=== PATIENT | female | born 1980 | race Caucasian/White ===

== ENCOUNTER 2022-08-28 09:03 | Emergency (ER) | payer MEDICAID ==
[2022-08-28 09:38] VITALS: BP 123/90
[2022-08-28] MEDS ORDERED: LIDOCAINE-EPINEPH-TETRACAINE 3 ML SYRINGE TOP STA (11:16)
--- NOTE | 2022-08-28 12:18 | ED Physician Documentation ---
PD HPI HEAD INJURY - Stated complaint Stated Complaint: LAC ON CHEEK - Chief complaint Chief Complaint: Laceration - History obtained from History obtained from: Patient - Additional information Additional information: Patient is a 41-year-old female presenting for a laceration to her right cheek that occurred just this morning when her cat jumped on top of her and accidentally scratched her with a back cough. Cats immunizations are up-to-date. Her last tetanus was in 2019. She does not take a blood thinner. Review of Systems Constitutional: denies: Fever Cardiac: denies: Chest pain / pressure Respiratory: denies: Dyspnea Skin: reports: Laceration (s) PD PAST MEDICAL HISTORY - Present Medications Home Medications: Ambulatory Orders Medication Instructions Recorded Confirmed Gabapentin [Neurontin] 600 mg PO DAILY 08/28/22 08/28/22 Tizanidine HCl 2 mg PO DAILY 08/28/22 08/28/22 - Allergies Allergies/Adverse Reactions: Allergies Allergy/AdvReac Type Severity Reaction Status Date / Time No Known Drug Allergies Allergy Verified 08/28/22 09:33 PD ED PE NORMAL - General General: Alert and oriented X 3, No acute distress, Well developed/nourished - HEENT HEENT: PERRL, EOMI, Moist mucous membranes, Pharynx benign, Other (2 cm laceration to right cheek, superficial scratches to nose) - Neck Neck: Supple, no meningeal sign - Respiratory Respiratory: No respiratory distress - Derm Derm: Warm and dry - Neuro Neuro: Normal speech PD ED PE EXPANDED - HEENT HEENT Visual: 1 - laceration Results - Vitals Vitals: Vital Signs - 24 hr 08/28/22 09:29 Temperature 36.4 C L Heart Rate 72 Respiratory 20 Rate Blood Pressure 123/90 H O2 Saturation 98 Procedures - Laceration (location) Right cheek Length in cm: 2 Wound type: Linear, Clean Neurovascular status: Sensory intact, Motor intact, Vascular intact Anesthesia: LET Wound preparation: Hibiclens, Irrigated copiously NS Skin layer closure: Size #-0 - enter number (5), Sutures - enter # (5) Other: Patient tolerated well, No complications, Neurovascular intact, Tetanus UTD PD Medical Decision Making - ED course ED course: Patient with cat scratch to face including 2 cm laceration below right eye. No ocular involvement. EOMI. Superficial scratches to the nose. Her tetanus is up-to-date. Discussed options for wound closure and patient is opted for suture repair which she tolerated well. As either scratches and bites I do not think she needs prophylactic antibiotics. Patient is counseled on need for suture removal as well as wound care instructions. She is counseled on concerning symptoms to return for. Departure - Departure Disposition: 01 Home, Self Care Clinical Impression: Cat scratch, Laceration of right cheek Condition: Stable Instructions: ED Laceration Facial Sutr Tape Comments: You have a laceration to your right cheek that was closed with 5 stitches. These should be left in for 3 to 5 days. You can return to the emergency department Or the walk-in clinic 09/02/22 for suture removal. Your last Tetanus was in 2019. We do not typically prescribe antibiotics prophylactically for cat scratches. However you need to make sure to keep a close eye on these wounds. Return to the emergency department with any worsening symptoms such as fever, redness, swelling or increased pain. Discharge Date/Time: 08/28/22 12:27
== END 2022-08-28 12:27 | disposition home or self-care (01) ==
LOC: ED 09:03
DX: S01.411A Laceration without foreign body of right cheek and temporomandibular area, initial encounter (principal); W55.03XA Scratched by cat, initial encounter
CPT/HCPCS: 12011; 99282

== ENCOUNTER 2022-09-05 09:41 | Emergency (ER) | payer MEDICAID ==
[2022-09-05 09:50] VITALS: BP 127/77
--- NOTE | 2022-09-05 10:06 | ED Physician Documentation ---
PD HPI WOUND RECHECK - Stated complaint Stated Complaint: STITCH REMOVAL - Chief complaint Chief Complaint: Laceration - Histroy obtained from History obtained from: Patient, Family - History of Present Illness Location: Face Timing - onset: How many days ago (7) Associated symptoms: No: Fever, Redness, Swelling, Drainage, Pain Similar symptoms before: Diagnosis (laceration) Recently seen: Emergency Dept - Additional information Additional information: Milady Astudillo is a 41-year-old female who had a cat jump on her face and she has a laceration below her right eye that was sutured 1 week ago. She is here now for suture removal. No complaints no problems with the wound. Review of Systems Constitutional: denies: Fever Eyes: denies: Decreased vision Ears: denies: Ear pain Respiratory: denies: Cough GI: denies: Vomiting PD PAST MEDICAL HISTORY - Present Medications Home Medications: Ambulatory Orders Medication Instructions Recorded Confirmed Gabapentin [Neurontin] 600 mg PO DAILY 08/28/22 09/05/22 Tizanidine HCl 2 mg PO DAILY 08/28/22 09/05/22 - Allergies Allergies/Adverse Reactions: Allergies Allergy/AdvReac Type Severity Reaction Status Date / Time No Known Drug Allergies Allergy Verified 09/05/22 09:47 PD ED PE NORMAL - Vitals Vital signs reviewed: Yes (normal ) - General General: Alert and oriented X 3, No acute distress, Well developed/nourished - HEENT HEENT: PERRL, EOMI, Other (3cm laceration below the right eye on the cheek is healing well without signs of inflamation ) - Respiratory Respiratory: No respiratory distress - Derm Derm: Normal color, Warm and dry - Extremities Extremities: No deformity, No edema - Neuro Neuro: Alert and oriented X 3, manager summer 2-12 intact, No motor deficit, No sensory deficit, Normal speech Eye Opening: Spontaneous Motor: Obeys Commands Verbal: Oriented GCS Score: 15 - Psych Psych: Normal mood, Normal affect Results - Vitals Vitals: Vital Signs - 24 hr 09/05/22 09:48 Temperature 36 C L Heart Rate 92 Respiratory 16 Rate Blood Pressure 127/77 O2 Saturation 99 Oxygen O2 Source Room air Procedures - Suture/staple Removal (location) - Minor face Suture/staple removal: # sutures (5), No complications PD Medical Decision Making - ED course Complexity details: considered differential, d/w patient ED course: 41-year-old female presents for suture removal wound is healing well sutures are removed. Departure - Departure Disposition: 01 Home, Self Care Clinical Impression: Encounter for removal of sutures Condition: Stable Follow-Up: [facility] [Provider Group]
== END 2022-09-05 10:00 | disposition home or self-care (01) ==
LOC: ED 09:41
DX: Z48.02 Encounter for removal of sutures (principal); S01.411D Laceration without foreign body of right cheek and temporomandibular area, subsequent encounter; W55.03XD Scratched by cat, subsequent encounter
CPT/HCPCS: 99281; 99282

== ENCOUNTER 2023-08-13 13:47 | Emergency (ER) | payer MEDICAID ==
--- NOTE | 2023-08-13 14:56 | XRAY Report ---
PROCEDURE: Hand 3+V LT INDICATIONS: Trauma TECHNIQUE: 3 views of the hand(s) acquired. COMPARISON: None. FINDINGS: Bones: No fractures or dislocations. No suspicious bony lesions. Soft tissues: No suspicious soft tissue calcifications or masses. IMPRESSION: No acute bony abnormality. Reviewed by: John Monzon MD on 08/13/2023 2:55 PM PDT Approved by: John Monzon MD on 08/13/2023 2:55 PM PDT Station ID: [id number]
--- NOTE | 2023-08-13 15:44 | ED Physician Documentation ---
History of Present Illness - Stated complaint Stated Complaint: L HAND PX - Chief complaint Chief Complaint: Trauma Ext - History obtained from History obtained from: Patient - History of Present Illness Timing: Today Pain level max: 3 Pain level now: 3 - Additonal information Additional information: 42-year-old female presents to the emergency department complaining of a small lump Just below her left ring finger. Present for the past few days. She states is causing pain today. No redness. She has had a ganglion cyst in the wrist before. No injury. PD PAST MEDICAL HISTORY - Past Medical History Past Medical History: No Other Past Medical History: smokes marijuana - Past Surgical History Past Surgical History: Yes Ortho: Other - Present Medications Home Medications: Ambulatory Orders Medication Instructions Recorded Confirmed Gabapentin [Neurontin] 600 mg PO DAILY 08/28/22 09/05/22 Tizanidine HCl 2 mg PO DAILY 08/28/22 09/05/22 - Allergies Allergies/Adverse Reactions: Allergies Allergy/AdvReac Type Severity Reaction Status Date / Time No Known Drug Allergies Allergy Verified 08/13/23 14:25 - Social History Does the pt smoke?: No Smoking Status: Never smoker Does the pt drink ETOH?: Yes Does the pt have substance abuse?: No PD ED PE NORMAL - General General: Alert and oriented X 3 - Derm Derm: Warm and dry - Extremities Extremities: Other (Small palpable cyst versus calcification in the tendon palmar aspect of the proximal phalanx of the left ring finger.) Results - Vitals Vitals: Vital Signs - 24 hr 08/13/23 08/13/23 14:19 16:11 Temperature 36.4 C L 36.7 C Heart Rate 79 89 Respiratory 18 20 Rate Blood Pressure 120/81 H 112/78 O2 Saturation 98 99 Oxygen O2 Source Room air - Rads (name of study) L hand xray Relevant Findings:: Final report received, See rad report PD Medical Decision Making - ED course Complexity details: reviewed results, considered differential, d/w patient ED course: Patient with what appears to be a small ganglion cyst versus a small calcific tendon to the left ring finger, proximal phalanx, palmar aspect. No redness. No swelling. No drainage. Full range of motion of the finger. Neurovascular intact. Will continue supportive care and recommend she follow-up with a hand surgeon for further care. Patient counseled regarding signs and symptoms for which I believe and urgent re-evaluation would be necessary. Patient with good understanding of and agreement to plan and is comfortable going home at this time This document was made in part using voice recognition software. While efforts are made to proofread this document, sound alike and grammatical errors may occur. Departure - Departure Disposition: 01 Home, Self Care Clinical Impression: Ganglion cyst of flexor tendon sheath of finger of left hand Condition: Good Instructions: ED Cyst Ganglion Follow-Up: [facility] [Provider Group] [facility] [Provider Group] Comments: As we discussed you have either a small cyst or calcification in the the tendon of your finger. You can follow up with a hand surgeon to discuss removal as it is causing you pain. Your xray does not show any acute abnormalities. Forms: PCP List Discharge Date/Time: 08/13/23 16:12
[2023-08-13 16:12] VITALS: BP 112/78; O2SAT 99
== END 2023-08-13 16:12 | disposition home or self-care (01) ==
LOC: ED 13:47
DX: M67.442 Ganglion, left hand (principal)
CPT/HCPCS: 99283

== ENCOUNTER 2023-11-02 15:47 | Emergency (ER) | payer MEDICAID ==
[2023-11-02 16:28] VITALS: BP 121/85; O2SAT 99
--- NOTE | 2023-11-02 16:51 | XRAY Report ---
PROCEDURE: Ankle 3+V RT INDICATIONS: Trauma TECHNIQUE: 3 views of the ankle were acquired. COMPARISON: None. FINDINGS: Bones: No fractures or dislocations. Ankle mortise is normally aligned. No suspicious bony lesions . Soft tissues: No tibiotalar joint effusion. Achilles tendon appears normal. Lateral soft tissue swe lling. IMPRESSION: No acute bony abnormality. Reviewed by: Richard Ahuja MD on 11/02/2023 4:49 PM PDT Approved by: Richard Ahuja MD on 11/02/2023 4:49 PM PDT Station ID: [id number]
--- NOTE | 2023-11-02 17:12 | ED Physician Documentation ---
PD HPI LOWER EXT INJURY - Stated complaint Stated Complaint: RT ANKLE INJ - Chief complaint Chief Complaint: Trauma Ext - Additional information Additional information: 42-year-old female presents emergency department for right ankle pain. Patient says that she was walking And accidentally inversely rolled her right ankle. There is swelling to the lateral portion of her right ankle she is able to ambulate further there is tenderness and there is some bruising. She says most of the pain is to the lateral aspect of her foot. PD PAST MEDICAL HISTORY - Past Medical History Past Medical History: Yes Cardiovascular: None Respiratory: None Neuro: None Endocrine/Autoimmune: None GI: None BUSINESS BANKING RELATIONSHIP MANAGER: None : None HEENT: None Psych: None Musculoskeletal: Osteoarthritis Derm: None - Past Surgical History Past Surgical History: Yes Ortho: Arthroscopic surgery, Other /BUSINESS BANKING RELATIONSHIP MANAGER: Breast implants - Present Medications Home Medications: Ambulatory Orders Medication Instructions Recorded Confirmed Gabapentin [Neurontin] 600 mg PO DAILY 08/28/22 11/02/23 Tizanidine HCl 2 mg PO DAILY 08/28/22 11/02/23 - Allergies Allergies/Adverse Reactions: Allergies Allergy/AdvReac Type Severity Reaction Status Date / Time No Known Drug Allergies Allergy Verified 11/02/23 16:12 - Social History Does the pt smoke?: No Smoking Status: Never smoker Does the pt drink ETOH?: Yes Does the pt have substance abuse?: Yes Substance Use and Type: Marijuana - Immunizations Immunizations are current?: Yes - POLST Patient has POLST: No PD ED PE NORMAL - Vitals Vital signs reviewed: Yes - General General: Alert and oriented X 3, No acute distress, Well developed/nourished - Derm Derm: Other (Mild ecchymosis to the dorsal aspect of right foot.) - Extremities Extremities: Other (Right lower extremity: Tenderness to the right lateral malleolus and the right lateral portion of foot. Strong dorsalis pedis pulse, CMS intact, full range of motion of flexion and extension limited range of motion with and versus rotation.) Results - Vitals Vitals: Vital Signs - 24 hr 11/02/23 16:12 Temperature 36.5 C Heart Rate 71 Respiratory 16 Rate Blood Pressure 121/85 H O2 Saturation 99 Oxygen O2 Source Room air - Rads (name of study) Right ankle x-rays Relevant Findings:: Final report received, EMP independent interpretation of test, Other (No acute bony abnormality or finding) PD Medical Decision Making - ED course ED course: 42-year-old female presents emergency department for right ankle pain. X-rays are complete for further evaluation and she does not appear to have any acute bony abnormalities or findings. There are some mild swelling to the right lateral portion of the malleolus as well as the dorsal aspect of the patient's foot with some mild ecchymosis. I believe that she is experiencing pain from a minor ankle sprain she is told to follow-up with primary care provider for repeat imaging in 10 days if pain is gotten any worse. She was offered Tylenol ibuprofen she said that she would take some at home. An Aircast was placed on patient's right foot she was taught how to manage this pain at home return precautions given all questions answered patient safe for discharge. Departure - Departure Disposition: 01 Home, Self Care Clinical Impression: Right ankle sprain Instructions: ED Sprain Foot Comments: Thank you for trusting us with your care we have completed x-rays of your ankle and foot and we are not seeing any acute fractures or abnormalities at this point in time. Please help with your primary care provider if your pain has increased in the next 10 days and have your foot reimaged. You can take Tylenol ibuprofen for pain and discomfort apply ice 20 minutes on 1 hour off and make sure that you continue to stretch and keep using that right ankle to help with recovery. Forms: PCP List Discharge Date/Time: 11/02/23 18:15
== END 2023-11-02 18:15 | disposition home or self-care (01) ==
LOC: ED 15:47
DX: S93.401A Sprain of unspecified ligament of right ankle, initial encounter (principal); X50.1XXA Overexertion from prolonged static or awkward postures, initial encounter; Y93.01 Activity, walking, marching and hiking
CPT/HCPCS: 99283